=== PATIENT | female | born 2000 | race Caucasian/White ===

== ENCOUNTER 2024-07-02 23:26 | Emergency (ER) | payer MEDICAID ==
[~2024-07-02] VITALS: Ht 165.1 cm; Wt 117.0 kg
[2024-07-02 23:44] VITALS: TEMP 98; O2SAT 98
[2024-07-03] MEDS ORDERED: ACET-2708 MT (01:57)
[2024-07-03 02:04] VITALS: BP 125/63; PULSE 85; RESP 17; O2SAT 99
== END 2024-07-03 02:09 | disposition home or self-care (01) ==
LOC: ER 23:26
DX: L02.411 Cutaneous abscess of right axilla (principal)
CPT/HCPCS: 99282; Z7610 ×2